=== PATIENT | female | born 1960 | race Two or more races ===

== ENCOUNTER 2024-06-09 17:34 | Emergency (ER) | payer OTHER ==
[~2024-06-09] VITALS: Ht 157.5 cm; Wt 63.5 kg
[2024-06-09] MEDS ORDERED: YUVAFEM10 MCG VAG (17:48)
[2024-06-09] MEDS ORDERED: CORGARD20 M1 PO (17:48)
[2024-06-09] MEDS ORDERED: SYNTHROID50 MCG PO (17:48)
[2024-06-09 17:51] VITALS: BP 190/70; O2SAT 100
[2024-06-09] MEDS ORDERED: 0.9 % SODIUM CHLORIDE 1,000 ML IV ONE (19:00)
[2024-06-09] MEDS ORDERED: FAMOtidine 10 MG/ML (4ML VIAL) IV ONE (19:00)
[2024-06-09 19:28] LABS: URINE APPEARANCE Clear; URINE BILIRRUBIN Negative (NEGATIVE); URINE BLOOD Negative; URINE COLOR Yellow; URINE GLUCOSE Negative (NEGATIVE); URINE KETONE Negative (NEGATIVE); URINE LEUKOCYTE Trace; URINE NITRATE Negative; URINE PROTEIN Negative (NEGATIVE); URINE UROBILINOGEN 0.2 E.U./dl
[2024-06-09 19:32] LABS: HEMATOCRIT 42.2 % (36.0-45.00); HEMOGLOBIN 14.4 g/dL (12.0-15.00); MEAN CELL VOLUME 88.9 fL (80.00-100.00); MEAN CORPUSCULAR HEMOGLOBIN 30.3 pg (27.00-32.0); MEAN CORPUSCULAR HGB CONC 34.1 g/dl (32.0-36.0); PLATELET COUNT 280 K/uL (150-450); RED BLOOD COUNT 4.75 M/uL (4.00-6.00); RED CELL DISTRIBUTION WIDTH 14.1 % (11.5-14.5)
[2024-06-09 19:34] LABS: URINE BACTERIA 191.3 uL (0.0-1933); URINE EPITHELIAL CELLS 4.7 uL (0.0-38.8); URINE RBC 3.2 uL (0.0-20.8); URINE WBC 11.2 uL (0.0-23.2)
[2024-06-09 19:43] LABS: BILIRUBIN TOTAL 0.22 mg/dL (0.3-1.2); CALCIUM 9.7 mg/dL (8.5-10.1); CREATININE SERUM 0.81 mg/dL (0.55-1.02); GFR 71.64; GLOBULINA 3.9 G/DL (2.4-3.5); POTASSIUM 4.05 mEq/L (3.5-5.1); TOTAL PROTEIN 7.9 gm/dL (6.4-8.2)
[2024-06-09] MEDS ORDERED: KETOROLAC TROMETHAMINE 60 MG VIAL IM ONE (20:15)
[2024-06-09] MEDS ORDERED: AMOX1TAB5 PO (22:00)
[2024-06-09] MEDS ORDERED: PEPCID AC20 MG PO (22:00)
== END 2024-06-09 22:05 | disposition home or self-care (01) ==
LOC: ER 17:35
PROVIDERS: General Practice
DX: N39.41 Urge incontinence (principal); M54.9 Dorsalgia, unspecified